=== PATIENT | female | born 1970 | race Two or more races ===

== ENCOUNTER 2020-08-05 11:13 | Outpatient (CLI) | payer OTHER ==
[~2020-08-05 11:13] MED LIST: ATENOLOL; ULTRACET PO
== END 2020-08-05 16:29 | disposition home or self-care (01) ==
LOC: OFIC 805 11:13
PROVIDERS: ATTEND Otolaryngology Otology & Neurotology
DX: J01.80 Other acute sinusitis (principal); J00 Acute nasopharyngitis [common cold]; R09.82 Postnasal drip; H92.01 Otalgia, right ear

== ENCOUNTER 2020-09-11 09:51 | Outpatient (CLI) | payer OTHER | END 2020-09-11 13:35 | disposition home or self-care (01) | LOC: OFIC 805 09:51 | PROVIDERS: ATTEND Otolaryngology Otology & Neurotology | DX: J01.80 Other acute sinusitis (principal); J00 Acute nasopharyngitis [common cold]; R09.82 Postnasal drip; H92.01 Otalgia, right ear ==

== ENCOUNTER 2020-10-23 08:14 | Outpatient (CLI) | payer OTHER | END 2020-10-23 08:45 | disposition home or self-care (01) | LOC: OFIC 805 08:14 | PROVIDERS: ATTEND Otolaryngology Otology & Neurotology | DX: J01.80 Other acute sinusitis (principal); J00 Acute nasopharyngitis [common cold]; H92.01 Otalgia, right ear ==

== ENCOUNTER → 2024-01-06 07:18 | Outpatient (CLI) | payer OTHER | END | disposition home or self-care (01) | LOC: NUCLEAR 07:00 | DX: R10.13 Epigastric pain (principal); R11.2 Nausea with vomiting, unspecified ==

== ENCOUNTER 2024-05-15 09:52 | Outpatient (CLI) | payer OTHER | END 2024-05-15 10:08 | disposition home or self-care (01) | LOC: SONOGRAMA 09:52 | PROVIDERS: ATTEND Family Medicine | DX: E04.1 Nontoxic single thyroid nodule (principal); N63 Unspecified lump in breast ==

== ENCOUNTER → 2024-06-30 | Outpatient (CLI) | payer OTHER | END | disposition home or self-care (01) | LOC: NUCLEAR 13:15 | PROVIDERS: ATTEND Family Medicine | DX: M81.0 Age-related osteoporosis without current pathological fracture (principal) ==

== ENCOUNTER 2024-10-22 16:57 | Emergency (ER) | payer OTHER ==
[~2024-10-22] VITALS: Ht 160 cm; Wt 44.9 kg
[2024-10-22] MEDS ORDERED: QULIPTA30 MG PO (17:10)
[2024-10-22] MEDS ORDERED: FOSAMAX70 MG PO (17:10)
[2024-10-22] MEDS ORDERED: CARAFATE1 GM (17:11)
[2024-10-22] MEDS ORDERED: GRALISE600 MG (17:11)
[2024-10-22] MEDS ORDERED: PRILOSEC OTC20 MG (17:11)
[2024-10-22] MEDS ORDERED: PEPCID AC20 MG (17:12)
[2024-10-22] MEDS ORDERED: UBRELVY50 MG PO (17:12)
[2024-10-22] MEDS ORDERED: TOPROL XL25 M1 (17:12)
[2024-10-22] MEDS ORDERED: ROSUVASTATIN CA10 MG PO (17:12)
[2024-10-22] MEDS ORDERED: ACETAMINOPHEN 500 MG GEL..CAP PO ONE ×2 (18:48→19:00)
== END 2024-10-22 19:05 | disposition home or self-care (01) ==
LOC: ER 16:57
DX: G89.11 Acute pain due to trauma (principal); S30.1XXA Contusion of abdominal wall, initial encounter; W18.39XA Other fall on same level, initial encounter; Y93.89 Activity, other specified; Y92.89 Other specified places as the place of occurrence of the external cause; Z88.0 Allergy status to penicillin; Z88.2 Allergy status to sulfonamides; Z88.8 Allergy status to other drugs, medicaments and biological substances; K21.9 Gastro-esophageal reflux disease without esophagitis; G43.909 Migraine, unspecified, not intractable, without status migrainosus; I10 Essential (primary) hypertension

== ENCOUNTER 2025-02-21 15:29 | Emergency (ER) | payer OTHER ==
[~2025-02-21] VITALS: Ht 160 cm; Wt 40.8 kg
[~2025-02-21 15:29] MED LIST changes: +CARAFATE1 GM; +FOSAMAX70 MG PO; +GRALISE600 MG; +PEPCID AC20 MG; +PRILOSEC OTC20 MG; +QULIPTA30 MG PO; +ROSUVASTATIN CA10 MG PO; +TOPROL XL25 M1; +UBRELVY50 MG PO
[2025-02-21 15:57] VITALS: BP 110/65; O2SAT 100
[2025-02-21] MEDS ORDERED: KETOROLAC TROMETHAMINE 30 MG VIAL IM STA (16:44)
[2025-02-21] MEDS ORDERED: KETOROLAC TROMETHAMINE 30 MG VIAL ONE (16:57)
== END 2025-02-21 17:41 | disposition home or self-care (01) ==
LOC: ER 15:29
DX: S13.4XXA Sprain of ligaments of cervical spine, initial encounter (principal); V49.3XXA Car occupant (driver) (passenger) injured in unspecified nontraffic accident, initial encounter; Y93.89 Activity, other specified; Y92.89 Other specified places as the place of occurrence of the external cause; Z88.0 Allergy status to penicillin; Z88.8 Allergy status to other drugs, medicaments and biological substances